=== PATIENT | female | born 1965 | race Caucasian/White ===

== ENCOUNTER 2017-07-06 14:04 | Emergency (ER) | payer MEDICAID ==
[~2017-07-06] VITALS: Ht 167.6 cm; Wt 64.0 kg
[2017-07-06 14:15] VITALS: BP 148/86
[2017-07-06] MEDS ORDERED: HYDROcodone/APAP 5/325 TABLET PO ONE (15:30)
[2017-07-06] MEDS ORDERED: HYDROcodone/APAP 5/325 TABLET ONE (15:30)
== END 2017-07-06 17:36 | disposition home or self-care (01) ==
LOC: ED 17:30
DX: S92.424A Nondisplaced fracture of distal phalanx of right great toe, initial encounter for closed fracture (principal); X58.XXXA Exposure to other specified factors, initial encounter; Y93.89 Activity, other specified; Y99.8 Other external cause status; Y92.009 Unspecified place in unspecified non-institutional (private) residence as the place of occurrence of the external cause; F15.10 Other stimulant abuse, uncomplicated; M72.2 Plantar fascial fibromatosis; K02.9 Dental caries, unspecified; K04.7 Periapical abscess without sinus
CPT/HCPCS: 29125; 29515; 93005; 99284

== ENCOUNTER → 2018-04-07 | Outpatient (CLI) | payer MEDICAID | END | disposition home or self-care (01) | LOC: CARD 15:57 | PROVIDERS: ATTEND Internal Medicine | DX: J40 Bronchitis, not specified as acute or chronic (principal); Z72.0 Tobacco use | CPT/HCPCS: 94060; 94726; 94729 ==

== ENCOUNTER 2018-07-05 13:39 | Emergency (ER) | payer MEDICAID ==
[~2018-07-05] VITALS: Ht 165.1 cm; Wt 91.1 kg
[2018-07-05 13:41] VITALS: BP 134/90
[2018-07-05 14:27] LABS: BASOPHILS # (AUTO) 0.07 x10^3/uL (0-0.1); BASOPHILS % (AUTO) 1 % (0-1); EOSINOPHILS # (AUTO) 0.11 x10^3/uL (0-0.4); EOSINOPHILS % (AUTO) 2 % (1-7); LYMPHOCYTES # (AUTO) 2.05 x10^3/uL (1-3.4); LYMPHOCYTES % (AUTO) 30 % (22-44); MD NO; MEAN CORPUSCULAR HEMOGLOBIN 29.1 pg (27.0-34.8); MEAN CORPUSCULAR HGB CONC 33.9 g/dL (32.4-35.8); MEAN CORPUSCULAR VOLUME 85.8 fL (80-100); MEAN PLATELET VOLUME 7.7 fL (7.4-10.4); MONOCYTES # (AUTO) 0.61 x10^3/uL (0.2-0.8); MONOCYTES % (AUTO) 9 % (2-9); NEUTROPHILS # (AUTO) 4.12 x10^3/uL (1.8-6.8); NEUTROPHILS % (AUTO) 59 % (42-75); PLATELET COUNT 420 x10^3/uL (130-400); RED BLOOD COUNT 5.05 x10^6/uL (3.82-5.3); RED CELL DISTRIBUTION WIDTH 12.8 % (9.6-15.2)
[2018-07-05 14:32] LABS: ALBUMIN 3.7 g/dL (3.4-5.0); ANION GAP 10 mmol/L (5-15); CALCIUM 8.7 mg/dL (8.5-10.1); CHLORIDE 103 mmol/L (98-107); CREATININE 1.05 mg/dL (0.55-1.02)
[2018-07-05 14:33] LABS: AMPHETAMINE SCREEN, URINE Negative (Negative); BARBITURATE SCREEN, URINE Negative (Negative); BENZODIAZEPINE SCREEN, URINE Negative (Negative); CANNABINOID SCREEN, URINE Negative (Negative); COCAINE SCREEN, URINE Negative (Negative); METHADONE SCREEN, URINE Negative (Negative); OPIATE SCREEN, URINE Negative (Negative)
[2018-07-05 14:46] LABS: ACETAMINOPHEN < 2 mcg/mL (10-30)
[2018-07-05 15:26] LABS: SALICYLATE LEVEL 3.7 mg/dL (2.8-20.0)
[2018-07-05] MEDS ORDERED: GABA-827 PO (16:12)
[2018-07-05] MEDS ORDERED: PALI39DI INJ (16:12)
== END 2018-07-05 21:46 ==
LOC: ED 15:54
DX: F32.9 Major depressive disorder, single episode, unspecified (principal); F17.200 Nicotine dependence, unspecified, uncomplicated
CPT/HCPCS: 36415; 80048; 80307; 80329; 82040; 84703; 85025; 99285; G0480

== ENCOUNTER 2019-04-04 09:32 | Outpatient (CLI) | payer MEDICAID ==
[~2019-04-04 09:32] MED LIST: GABA-827 PO; PALI39DI INJ
== END 2019-04-04 23:59 | disposition home or self-care (01) ==
LOC: CFH 09:32
DX: M48.02 Spinal stenosis, cervical region (principal); M50.322 Other cervical disc degeneration at C5-C6 level; M51.16 Intervertebral disc disorders with radiculopathy, lumbar region; M51.26 Other intervertebral disc displacement, lumbar region
CPT/HCPCS: 72141; 72148